=== PATIENT | female | born 1975 | race Caucasian/White ===

== ENCOUNTER 2017-08-15 15:01 | Emergency (ER) | payer OTHER ==
[~2017-08-15] VITALS: Ht 154.9 cm; Wt 45.4 kg
[2017-08-15 15:03] VITALS: BP 136/76; Ht 154.9 cm; Wt 45.4 kg
== END 2017-08-15 16:35 | disposition other institution (70) ==
LOC: ED 15:01
DX: Z02.89 Encounter for other administrative examinations (principal)